=== PATIENT | female | born 1965 | race Asian ===

== ENCOUNTER 2017-07-04 17:40 | Emergency (ER) | payer MEDICAID ==
[~2017-07-04] VITALS: Ht 157.5 cm; Wt 54.4 kg
[2017-07-04 17:40] VITALS: BP 121/82
[2017-07-04] MEDS ORDERED: Tetanus/Diptheria/Pertussis Vaccine 0.5ml Syr IM ONE (18:15)
[2017-07-04 18:31] LABS: BASOPHILS % (AUTO) 0.8 % (0.0-2.0); EOSINOPHILS % (AUTO) 1.9 % (0.0-3.0); LYMPHOCYTES % (AUTO) 25.7 % (20.0-45.0); MEAN CORPUSCULAR HEMOGLOBIN 27.9 PG (27.0-31.0); MEAN CORPUSCULAR HGB CONC 30.1 G/DL (32.0-36.0); MEAN CORPUSCULAR VOLUME 93 FL (80-99); MEAN PLATELET VOLUME 8.1 FL (6.5-10.1); MONOCYTES % (AUTO) 7.4 % (1.0-10.0); NEUTROPHILS % (AUTO) 64.2 % (45.0-75.0); PLATELET COUNT 176 K/UL (150-450); RED BLOOD COUNT 4.54 M/UL (4.20-5.40); RED CELL DISTRIBUTION WIDTH 12.6 % (11.6-14.8); WHITE BLOOD COUNT 4.4 K/UL (4.8-10.8)
[2017-07-04 18:58] LABS: ALANINE AMINOTRANSFERASE 14 U/L (3-33); ALBUMIN/GLOBULIN RATIO 1.5 (1.0-2.7); ANION GAP 11 (5-15); ASPARTATE AMINO TRANSFERASE 19 U/L (5-40); CALCIUM 9.6 mg/dL (8.6-10.2); CARBON DIOXIDE 30 mEQ/L (20-30); CHLORIDE 99 mEQ/L (98-107); CREATININE 0.8 mg/dL (0.5-0.9); GLOMERULAR FILTRATION RATE > 60 mL/min (>60); HEMOLYSIS 0; POTASSIUM 4.1 mEQ/L (3.4-4.9); SODIUM 140 mEQ/L (135-145); TOTAL PROTEIN 7.4 g/dL (6.6-8.7); TROPONIN I < 0.30 ng/mL (<=0.30)
[2017-07-04 19:06] LABS: APPEARANCE,URINE CLEAR; KETONES,URINE NEGATIVE (NEGATIVE); LEUKOCYTE ESTERASE ,URINE 1+ (NEGATIVE); NITRITE,URINE NEGATIVE (NEGATIVE); PH,URINE 8 (4.5-8.0); PROTEIN,URINE NEGATIVE (NEGATIVE); UROBILINOGEN,URINE NORMAL MG/DL (0.0-1.0)
[2017-07-04 19:09] LABS: CKMB 1.5 ng/mL (< 3.8)
[2017-07-04 19:13] LABS: RBC,URINE 0-2 /HPF (0 - 2)
[2017-07-04 19:14] LABS: BACTERIA,URINE FEW /HPF; SQUAMOUS EPITHELIAL CELL,UR FEW /LPF (NONE/OCC); WBC,URINE 0-2 /HPF (0 - 2)
[2017-07-04] MEDS ORDERED: NORCO 5-325 TA1 EACH ORAL (19:31)
[2017-07-04] MEDS ORDERED: AMOXICILLIN500 MG ORAL (19:31)
[2017-07-04 19:45] VITALS: BP 121/82
--- NOTE | 2017-07-04 21:15 | Emergency Room Report ---
History of Present Illness General Chief Complaint: Syncope Source: Patient Present Illness HPI 52-year-old female presents ED status post syncopal episode. She was at a sauna a when she felt dizzy and fell forward hitting her face. Patient presents with blood in her mouth and pain in her tooth. Tetanus unknown. Pain is a 6/10, all, nonradiating. Denies photophobia, blurry vision, nausea or vomiting. Patient states she's been dieting recently and is currently on a juice cleanse. Denies chest pain or shortness of breath. No aggravating relieving factors. Denies any other associated symptom Allergies: Coded Allergies: No Known Allergies (Unverified , 07/04/17) Patient History Past Medical History: none Past Surgical History: none Pertinent Family History: none Social History: Denies: smoking, alcohol use, drug use Last Menstrual Period: menopause Now: No Immunizations: UTD Reviewed Nursing Documentation: PMH: Agreed, PSxH: Agreed Nursing Documentation-PMH Past Medical History: No Stated History Review of Systems All Other Systems: negative except mentioned in HPI Physical Exam Vital Signs Date Time Temp Pulse Resp B/P (MAP) Pulse Ox O2 Delivery O2 Flow Rate FiO2 07/04/17 17:37 97.2 64 16 121/82 98 Room Air Sp02 EP Interpretation: reviewed, normal General Appearance: no apparent distress, alert, GCS 15, non-toxic Head: normocephalic, atraumatic Eyes: bilateral eye normal inspection, bilateral eye PERRL ENT: hearing grossly normal, normal pharynx, no angioedema, normal voice, other - loose lateral incisor 7th tooth Neck: full range of motion, supple/symm/no masses Respiratory: chest non-tender, lungs clear, normal breath sounds, speaking full sentences Cardiovascular #1: regular rate, rhythm, no edema Cardiovascular #2: 2+ carotid (R), 2+ carotid (L), 2+ radial (R), 2+ radial (L) , 2+ dorsalis pedis (R), 2+ dorsalis pedis (L) Gastrointestinal: normal bowel sounds, non tender, soft, non-distended, no guarding, no rebound Rectal: deferred Genitourinary: normal inspection, no CVA tenderness Musculoskeletal: back normal, gait/station normal, normal range of motion, non- tender Neurologic: alert, oriented x3, responsive, motor strength/tone normal, sensory intact, speech normal Psychiatric: judgement/insight normal, memory normal, mood/affect normal, no suicidal/homicidal ideation Reflexes: 3+ bicep (R), 3+ bicep (L), 3+ tricep (R), 3+ tricep (L), 3+ knee (R) , 3+ knee (L) Skin: normal color, no rash, warm/dry, well hydrated, laceration - 1cm laceration to lower lip Lymphatic: no adenopathy Procedures Laceration/Wound Repair Laceration/Wound Repair : Consent: Verbal Wound Location: other - lower lip Wound's Depth, Shape: linear Wound Explored: clean Betadine Prep?: No Anesthesia: 1% Lidocaine Wound Debrided: minimal Wound Repaired With: sutures Suture Size/Type: 4:0, other - vicryl Layer Closure?: No Sterile Dressing Applied?: No Splint Applied?: No Sling Applied?: No Patient Tolerated: Well Complications: None Medical Decision Making Diagnostic Impression: Primary Impression: Injury of tooth Qualified Codes: S09.93XA - Unspecified injury of face, initial encounter Additional Impressions: Syncope Qualified Codes: R55 - Syncope and collapse Lip laceration Qualified Codes: S01.511A - Laceration without foreign body of lip, initial encounter ER Course Hospital Course 52-year-old female presents ED s/p syncopal episode with bleeding from lip, loose tooth Differential diagnoses include: arrythmia, dehydration, intracranial bleed, seizure Clinical course Patient placed on stretcher. on potline monitor. After initial history and physical I ordered labs, EKG, chest Xray, IVFs, CT Brain, CT facial bone labs reviewed- no leukocytosis, Hb/Hct stable, electrolytes ok, troponins negative CT Brain - unremarkable CT Facial Bone - mouth contusion, lateral incisor tooth loose on the left Chest x-ray- no acute process EKG -sinus bradycaria, no acute ishcemic changes interpreted by me lip laceration repaired. Tetanus given. per Syncope rules, patient can be discharged pending outpatient followup. Patient is to follow with dentist as outpatient for tooth repair I. I feel this is a highly complex case requiring extensive working including EKG/Rhythm strip, Xray/CT/US, Blood/urine lab work, repeat exams while in ED, and administration of strong opiates/narcotics for pain control, admission to hospital or close patient follow up. Diagnosis - tooth injury, syncope, lip laceration Stable and discharged to home with prescription for amoxicillin, [facility]. Followup with PMD/dentist. Return to ED if symptoms recur or worsen Labs Test 07/04/17 18:20 07/04/17 18:45 White Blood Count 4.4 K/UL (4.8-10.8) Red Blood Count 4.54 M/UL (4.20-5.40) Hemoglobin 12.7 G/DL (12.0-16.0) Hematocrit 42.1 % (37.0-47.0) Mean Corpuscular Volume 93 FL (80-99) Mean Corpuscular Hemoglobin 27.9 PG (27.0-31.0) Mean Corpuscular Hemoglobin Concent 30.1 G/DL (32.0-36.0) Red Cell Distribution Width 12.6 % (11.6-14.8) Platelet Count 176 K/UL (150-450) Mean Platelet Volume 8.1 FL (6.5-10.1) Neutrophils (%) (Auto) 64.2 % (45.0-75.0) Lymphocytes (%) (Auto) 25.7 % (20.0-45.0) Monocytes (%) (Auto) 7.4 % (1.0-10.0) Eosinophils (%) (Auto) 1.9 % (0.0-3.0) Basophils (%) (Auto) 0.8 % (0.0-2.0) Sodium Level 140 mEQ/L (135-145) Potassium Level 4.1 mEQ/L (3.4-4.9) Chloride Level 99 mEQ/L (98-107) Carbon Dioxide Level 30 mEQ/L (20-30) Anion Gap 11 (5-15) Blood Urea Nitrogen 8 mg/dL (7-23) Creatinine 0.8 mg/dL (0.5-0.9) Estimat Glomerular Filtration Rate > 60 mL/min (>60) Glucose Level 105 mg/dL (74-106) Calcium Level 9.6 mg/dL (8.6-10.2) Total Bilirubin 0.6 mg/dL (0.0-1.2) Aspartate Amino Transf (AST/SGOT) 19 U/L (5-40) Alanine Aminotransferase (ALT/SGPT) 14 U/L (3-33) Alkaline Phosphatase 67 U/L (35-104) Total Creatine Kinase 95 U/L (26-140) Creatine Kinase MB 1.5 ng/mL (< 3.8) Creatine Kinase MB Relative Index 1.5 Troponin I < 0.30 ng/mL (<=0.30) Pro-B-Type Natriuretic Peptide 33 pg/mL (0-125) Total Protein 7.4 g/dL (6.6-8.7) Albumin 4.5 g/dL (3.5-5.2) Globulin 2.9 g/dL Albumin/Globulin Ratio 1.5 (1.0-2.7) Urine Color Pale yellow Urine Appearance Clear Urine pH 8 (4.5-8.0) Urine Specific [place] 1.015 (1.005-1.035) Urine Protein Negative (NEGATIVE) Urine Glucose (UA) Negative (NEGATIVE) Urine Ketones Negative (NEGATIVE) Urine Occult Blood Negative (NEGATIVE) Urine Nitrite Negative (NEGATIVE) Urine Bilirubin Negative (NEGATIVE) Urine Urobilinogen Normal MG/DL (0.0-1.0) Urine Leukocyte Esterase 1+ (NEGATIVE) Urine RBC 0-2 /HPF (0 - 2) Urine WBC 0-2 /HPF (0 - 2) Urine Squamous Epithelial Cells Few /LPF (NONE/OCC) Urine Bacteria Few /HPF (NONE) EKG Diagnostic Results Rate: bradycardiac Rhythm: NSR ST Segments: no acute changes ASA given to the pt in ED: No Rhythm Strip Diag. Results EP Interpretation: yes Rhythm: NSR, no PVC's, no ectopy Chest X-Ray Diagnostic Results Chest X-Ray Diagnostic Results : Chest X-Ray Ordered: Yes # of Views/Limited/Complete: 1 View Indication: Other - syncope EP Interpretation: Yes Interpretation: no consolidation, no effusion, no pneumothorax, no acute cardiopulmonary disease Impression: No acute disease Electronically Signed by: Electronically signed by Rafael Gonzalez MD CT/MRI/US Diagnostic Results CT/MRI/US Diagnostic Results #1: Imaging Test Ordered: CT head Impression no acute process CT/MRI/US Diagnostic Results #2: Imaging Test Ordered: CT facial bone Impression Contusion of mouth, left lateral incisor loose Last Vital Signs Date Time Temp Pulse Resp B/P (MAP) Pulse Ox O2 Delivery O2 Flow Rate FiO2 10/5/17 19:45 97.2 16 121/82 98 Room Air 07/04/17 17:40 60 Status: improved Disposition: HOME, SELF-CARE Condition: Stable Scripts Amoxicillin* (AMOXIL*) 500 Mg Capsule 500 MG ORAL THREE TIMES A DAY, #21 CAP Prov: RAFAEL GONZALEZ M.D. 07/04/17 Hydrocodone Bit/Acetaminophen 5-325* (NORCO 5-325*) 1 Each Tablet 1 TAB ORAL Q6H Y for For Pain, #10 TAB 0 Refills Prov: RAFAEL GONZALEZ M.D. 07/04/17 Referrals: NOT CHOSEN IPA/,REFERRING (PCP) Patient Instructions: Syncope RAFAEL GONZALEZ M.D. Jul 04, 2017 21:15
--- NOTE | 2017-07-05 08:51 | Diagnostic Imaging Report ---
Indication: Facial trauma. Orbital trauma. Facial and head pain tenderness Technique: Continuous helical transaxial imaging of the maxillofacial structures obtained without intravenous contrast administration. Coronal 2-D reformats were also obtained. Study obtained in a Siemens sensation [address] Total Dose length Product (DLP): [address] Dose Index Volume (CTDIvol): 0.15, 70.38, 28.19 mGy Comparison: None Findings: There is a soft tissue contusion injury involving the a upper lip just anterior to the superior alveolar ridge which appears edematous. The right lateral incisor (tooth 7) appears partially dislodged and displaced anteriorly with suggestion of mild anterior, superficial cortical injury of the adjacent maxillary bone (image 33 series 8). The paranasal sinuses are clear. No other fractures are seen. Impression: Acute injury with dislodging of the right lateral incisor and mild adjacent bony injury. Correlate with physical exam findings and dental survey. Higher resolution dental x-ray may be helpful. No acute facial or orbital fractures otherwise. The CT scanner at [facility] is accredited by the [employer] and the scans are performed using dose optimization techniques as appropriate to a performed exam including Automatic Exposure control.
--- NOTE | 2017-07-05 08:52 | Diagnostic Imaging Report ---
Indication: Headache Technique: Contiguous 5 mm thick transaxial imaging of the head obtained in a Siemens Sensation [address] scanner. Soft tissue and bone windows generated. Total Dose length Product (DLP): Refer to CT facial bone mGycm CT Dose Index Volume (CTDIvol): Refer to CT facial bones report mGy Comparison: none Findings: The size and configuration of the cortical sulci, basal cisterns, and ventricles are within normal limits for age. There is no mass effect, midline shift, or edema identified. There is no evidence of acute hemorrhage or abnormal intra-axial or extra-axial fluid collections. The bones and soft tissues are unremarkable. Impression: No mass effect, edema or acute bleed. The CT scanner at [facility] is accredited by the [employer] and the scans are performed using dose optimization techniques as appropriate to a performed exam including Automatic Exposure control.
--- NOTE | 2017-07-05 10:48 | Diagnostic Imaging Report ---
Indication: Dyspnea Comparison: None A single view chest radiograph was obtained. Findings: Cardiomediastinal appearance is within normal limits for age. Pulmonary vascularity is appropriate. The diaphragmatic contour is smooth and costophrenic angles are sharp. No pleural effusions are identified. The bones are unremarkable. Impression: No acute findings
--- NOTE | 2017-07-11 23:26 | Cardiology Report ---
APPROVED REPORT EKG Measurement Heart [id number] Sinus bradycardia Otherwise normal ECG
== END 2017-07-04 19:45 | disposition home or self-care (01) ==
LOC: EDBD 17:40 → EMR 19:38
DX: S01.511A Laceration without foreign body of lip, initial encounter (principal); K08.89 Other specified disorders of teeth and supporting structures; W19.XXXA Unspecified fall, initial encounter; Y92.89 Other specified places as the place of occurrence of the external cause; R55 Syncope and collapse; Z23 Encounter for immunization; R51 Headache
CPT/HCPCS: 36415; 70450; 70486; 71010; 80053; 81003; 82550; 82553; 83880; 84484; 85025; 90471; 90715; 93005; 96360; 99284